=== PATIENT | female | born 1995 | race Caucasian/White ===

== ENCOUNTER 2017-05-22 08:15 | Inpatient (IN) | payer BC, OTHER ==
[~2017-05-22] VITALS: Ht 167.6 cm; Wt 109.0 kg
--- OUTSIDE RECORDS SUMMARY | ~2017-05-22 | XMS ---
Demographics + + + | Address | [address] | | | [place] [address] | + + + | Preferred Language | Unknown | + + + | Marital Status | Unknown | + + + | Episcopal Affiliation | Unknown | + + + | Race | Unknown | + + + | Ethnic Group | Unknown | + + + Author + + + | Author | [facility] | + + + | Organization | [facility] | + + + | Address | [address] | | | [place] [address] | + + + | Phone | | + + + Care Team Providers + + + + | Care Hot End Operator Name | Role | Phone | + + + + Unavailable | Unavailable | + + + + PROBLEMS +---------+ + + +--------+ + + | Type | Condition | ICD9-CM | [id number] | Onset | Condition | SNOMED | | | | Code | Code | Dates | Status | Code | +---------+ + + +--------+ + + | Problem | Encounter | | Z34.00 | | Active | [id number] | | | for | | | | | | | | supervisio | | | | | | | | n of | | | | | | | | normal | | | | | | | | first | | | | | | | | , | | | | | | | | | | | | | | | | unspecifie | | | | | | | | d | | | | | | | | trimester | | | | | | +---------+ + + +--------+ + + ALLERGIES Unknown Allergies SOCIAL HISTORY No smoking Hx information available PLAN OF CARE VITAL SIGNS MEDICATIONS Unknown Medications RESULTS No Results PROCEDURES No Known procedures IMMUNIZATIONS No Known Immunizations"
--- NOTE | 2017-05-26 13:32 | NUR ---
05/26/17 1332 Lisa Yost 1324 PATIENT ARRIVES TO [facility] ROOM FROM OR, AWAKE, ALERT AND ORIENTED X3. RESP EVEN AND UNLABORED. SKIN PALE, WARM, DRY. DENIES COMPLAINTS OF NAUSEA OR PAIN.
--- NOTE | 2017-05-27 10:23 | OR ---
[facility] [address] [place], [place] [address] Signed DATE OF PROCEDURE: 05/26/17 PREOPERATIVE DIAGNOSES: Term , macrosomia. POSTOPERATIVE DIAGNOSES: Term , macrosomia. PROCEDURE PERFORMED Primary low transverse segment section. Delivery, live male . SURGEON: Dr. Arguelles. SAND WHEELER: Dr. Davis. ANESTHESIA: Spinal. ESTIMATED BLOOD LOSS: 500 mL. COMPLICATIONS: None. DRAINS: Cross to bladder. FINDINGS Live male . Apgars 9 and 9, weight 9 pounds 13 ounces. Normal uterus, normal tubes and ovaries bilaterally. DESCRIPTION OF PROCEDURE The patient was brought in the operating room, placed in the supine position. After adequate spinal anesthesia was obtained, she was prepped and draped in usual sterile fashion. Cross catheter was placed in the bladder. A Pfannenstiel skin incision was made with a scalpel, extended through subcutaneous tissue with a Bovie. Fascia was nicked with scalpel and extended in transverse fashion using curved scissors. The underlying abdominal musculature was bluntly and sharply from the fascia above and below the incision. The abdominal musculature was bluntly and sharply on the midline. The peritoneum was grasped with hemostats, elevated and nicked with Metzenbaum scissors and extended in a vertical fashion using Metzenbaum scissors. The Rashel self-retaining retractor was inserted into the incision and tightened in place. The lower uterine segment of the uterus was identified and the bladder noted to be well below the area, so a scalpel was used to make a small laurence in the lower uterine segment. Finger dissection was then used in a transverse fashion to open the incision; clear fluid came from the incision. The infant was noted to be in a vertex BLANQUITA presentation. The infant's head was easily delivered from the incision. The cord was noted to be around the neck and shoulder in a [id number]-zb-[id number] pattern. This was removed and the rest Electronically Signed By: MIRI ARGUELLES MD 05/27/17 1023 PATIENT NAME: ISAIAH HINDS OPERATIVE REPORT DATE OF : 89 PHYSICIAN: MIRI ARGUELLES MD REPORT #: [id number] REPORT IS CONFIDENTIAL AND NOT TO BE RELEASED WITHOUT AUTHORIZATION [facility] [address] [place], [place] [address] Signed of the easily delivered from the incision. The mouth and nose were suctioned with bulb syringe while the cord was doubly clamped and cut. The was passed off table in good condition to awaiting nurse. The placenta was then manually removed and uterine cavity explored with a lap pad to remove any retained membranes. An angle stitch of 0 Monocryl was placed in one end of incision and running locking stitch of 0 Monocryl starting at the other end, used to close the incision. A second running stitch of 0 Monocryl was used to imbricate the first layer. A good hemostasis noted except for 1 small area just to the right of midline, which was controlled with a hholhk-du-omfgd stitch of 0 Monocryl. When good hemostasis was obtained, the entire pelvis was irrigated, suctioned, examined and any superficial bleeding spots cauterized with the Bovie. The Rashel retractor was then removed and the lower uterine segment reexamined, noted to have good hemostasis. Sheet of ACell was placed over the lower uterine segment to help with healing. The anterior peritoneum was then closed using a running stitch of 2-0 Vicryl suture. The abdominal musculature was reapproximated using interrupted stitches of 0 Vicryl suture. The abdominal wall incision was irrigated, suctioned, examined and any bleeding spots cauterized with the Bovie. Powdered ACell sprinkled on the abdominal musculature to help with healing and then the fascia closed using 2 running stitches of 0 Vicryl suture meeting in the midline. Subcutaneous tissue was irrigated, suctioned, examined and any bleeding spots cauterized with the Bovie. Powdered ACell was sprinkled on subcutaneous tissue to help with healing and then this was closed using interrupted stitches of 3-0 Vicryl suture. The skin was reapproximated using skin clips. The patient tolerated the procedure well; went to recovery room in good condition. All sponge, needle, instrument count correct at th end of the procedure. MD NORIS Tompkins/Dipeshl /[id number] Electronically Signed By: MIRI ARGUELLES MD 05/27/17 1023 PATIENT NAME: ISAIAH HINDS OPERATIVE REPORT DATE OF : 95 PHYSICIAN: MIRI ARGUELLES MD REPORT #: [id number] REPORT IS CONFIDENTIAL AND NOT TO BE RELEASED WITHOUT AUTHORIZATION
--- NOTE | 2017-05-27 10:24 | PR ---
[facility] [address] [place] [address] Signed PP Progress Notes Datetime Report Generated by CPN: 05/27/2017 10:24 SUBJECTIVE: [id number] Pain: Within normal limits Nausea/Vomiting: Denies Vital Signs: [id number] Vital Signs: Reviewed; Within Normal Limits Notable Details: PP Hgb/Hct = 8.9/26.3 EXAM: [id number] Abdomen/Uterus: Normal Lochia: Normal Extremities: Normal Incision: Normal IMPRESSION/PLAN/PROCEDURES: [id number] Impression: Normal progression Plan: Continue present management Procedures: None Progress Notes: Doing well, feels better now that Tay Jones is out. Signing Physician: Adrian Arguelles MD CC: *Electronically Signed* 05/27/17 [facility] ADRIAN ARGUELLES MD PATIENT NAME: ISAIAH HINDS PROGRESS NOTE DATE OF : 95 PHYSICIAN: ADRIAN ARGUELLES MD RPT #: [id number] REPORT IS CONFIDENTIAL AND NOT TO BE RELEASED WITHOUT AUTHORIZATION
--- NOTE | 2017-05-28 08:50 | PR ---
[facility] [address] [facility] [place], [place] [address] Signed PP Progress Notes Datetime Report Generated by CPN: 05/28/2017 08:50 SUBJECTIVE: [id number] Pain: Within normal limits Nausea/Vomiting: Denies Vital Signs: [id number] Vital Signs: Reviewed; Within Normal Limits Notable Details: Plts = 98 (increasing) Hgb/Hct = 8.6/25.5 EXAM: [id number] Abdomen/Uterus: Normal Lochia: Normal Extremities: Normal Incision: Normal IMPRESSION/PLAN/PROCEDURES: [id number] Impression: Normal progression Other Impression: PP Anemia. Thrombocytopenia Plan: Continue present management Procedures: None Progress Notes: Doing well, improving, but still somewhat sore. Plan home tomorrow. Signing Physician: Miri Benavidez MD CC: *Electronically Signed* 05/28/17 0850 MIRI BENAVIDEZ MD PATIENT NAME: ISAIAH HNIDS PROGRESS NOTE DATE OF : 95 PHYSICIAN: MIRI BENAVIDEZ MD RPT #: [id number] REPORT IS CONFIDENTIAL AND NOT TO BE RELEASED WITHOUT AUTHORIZATION
== END 2017-05-29 11:20 | disposition home or self-care (01) | DRG 766 ==
LOC: FBC 05-26 09:59
PROVIDERS: ADMIT General Practice
PROC: 10D00Z1 Extraction of Products of Conception, Low, Open Approach (ICD-10-PCS; principal; 2017-05-26 12:00)
DX: O36.63X0 Maternal care for excessive fetal growth, third trimester, not applicable or unspecified (principal); Z3A.39 39 weeks gestation of pregnancy; Z37.0 Single live birth; O90.81 Anemia of the puerperium; O99.824 Streptococcus B carrier state complicating childbirth; O69.81X0 Labor and delivery complicated by cord around neck, without compression, not applicable or unspecified
CPT/HCPCS: 01961; 36415; 85027; C1763; J0690; J2274; J2370; J2405; J2550; J2590; J2765; J7120

== ENCOUNTER 2018-07-16 17:35 | Emergency (ER) | payer BC ==
[~2018-07-16] VITALS: Ht 167.6 cm; Wt 108.4 kg
--- OUTSIDE RECORDS SUMMARY | ~2018-07-16 | XMS ---
Demographics + + + | Address | [address] | | | [place] [address] | + + + | Preferred Language | Unknown | + + + | Marital Status | Unknown | + + + | Catholic Affiliation | Unknown | + + + | Race | Unknown | + + + | Ethnic Group | Unknown | + + + Author + + + | Author | [facility] | + + + | Organization | [facility] | + + + | Address | [address] | | | [place] [address] | + + + | Phone | | + + + Care Team Providers + + + + | Care Geothermal Production Manager Name | Role | Phone | + + + + Unavailable | Unavailable | + + + + PROBLEMS Unknown Problems ALLERGIES No Known Allergies SOCIAL HISTORY Never Assessed PLAN OF CARE + +---------+ | Activity | Details | + +---------+ +---+ | | +---+ + + + | Follow Up | 4 Weeks Reason:null | + + + VITAL SIGNS + + + + | Height | 5 ft 6 in in | 2017-06-08 | + + + + | Weight | 206 lbs | 2017-06-08 | + + + + | BMI | 33.25 kg/m2 | 2017-06-08 | + + + + | Temperature | 98.4 degrees Fahrenheit | 2017-06-08 | + + + + | Heart Rate | 116/70 /min | 2017-06-08 | + + + + MEDICATIONS + + + + +--------+ + +--------+ | Medicati | Instruct | Dosage | Frequenc | Start | End Date | Duration | Status | | on | ions | | y | Date | | | | + + + + +--------+ + +--------+ | Ibuprofe | Orally | 1 tablet | | | | | Active | | n 800 MG | every 8 | | | | | | | | | hours as | | | | | | | | | needed | | | | | | | | | for pain | | | | | | | + + + + +--------+ + +--------+ RESULTS No Results PROCEDURES + + +--------+ + | Procedure | Date Ordered | Result | Body Site | + + +--------+ + | visit | Jun 08, 2017 | | | + + +--------+ + IMMUNIZATIONS No Known Immunizations MEDICAL (GENERAL) HISTORY + + +------+ | Type | Description | Date | + + +------+ | Medical History | No previous medical | | | | problems | | + + +------+ | Surgical History | gallbladder | 2010 | + + +------+ | Surgical History | tonsilectomy | 1998 | + + +------+"
--- OUTSIDE RECORDS SUMMARY | ~2018-07-16 | XMS ---
Demographics + + + | Address | [address] | | | [place] [address] | + + + | Preferred Language | Unknown | + + + | Marital Status | Unknown | + + + | Buddhist Affiliation | Unknown | + + + | Race | Unknown | + + + | Ethnic Group | Unknown | + + + Author + + + | Author | [facility] | + + + | Organization | [facility] | + + + | Address | [address] | | | [place] [address] | + + + | Phone | | + + + Care Team Providers + + + + | Care Antisqueak Chalker Name | Role | Phone | + + + + Unavailable | Unavailable | + + + + PROBLEMS Unknown Problems ALLERGIES No Information SOCIAL HISTORY Never Assessed PLAN OF CARE + +---------+ | Activity | Details | + +---------+ +---+ | | +---+ + + + | Follow Up | 1 Week Reason:null | + + + VITAL SIGNS MEDICATIONS Unknown Medications RESULTS No Results PROCEDURES + + +--------+ + | Procedure | Date Ordered | Result | Body Site | + + +--------+ + | visit | Jun 02, 2017 | | | + + +--------+ + IMMUNIZATIONS No Known Immunizations MEDICAL (GENERAL) HISTORY + + +------+ | Type | Description | Date | + + +------+ | Medical History | No previous medical | | | | problems | | + + +------+ | Surgical History | gallbladder | 2010 | + + +------+ | Surgical History | tonsilectomy | 1997 | + + +------+"
--- OUTSIDE RECORDS SUMMARY | ~2018-07-16 | XMS ---
Demographics + + + | Address | [address] | | | [place] [address] | + + + | Preferred Language | Unknown | + + + | Marital Status | Unknown | + + + | Orthodox Affiliation | Unknown | + + + | Race | Unknown | + + + | Ethnic Group | Unknown | + + + Author + + + | Author | [facility] | + + + | Organization | [facility] | + + + | Address | [address] | | | [place] [address] | + + + | Phone | | + + + Care Team Providers + + + + | Care Maintenance Clerk Name | Role | Phone | + + + + Unavailable | Unavailable | + + + + PROBLEMS +---------+ + + +--------+ + + | Type | Condition | ICD9-CM | [id number] | Onset | Condition | SNOMED | | | | Code | Code | Dates | Status | Code | +---------+ + + +--------+ + + | Problem | Encounter | | Z34.00 | | Active | [id number] | | | for | | | [...]
--- OUTSIDE RECORDS SUMMARY | ~2018-07-16 | XMS ---
Demographics + + + | Address | [address] | | | [place] [address] | + + + | Preferred Language | Unknown | + + + | Marital Status | Unknown | + + + | Bahai Affiliation | Unknown | + + + | Race | Unknown | + + + | Ethnic Group | Unknown | + + + Author + + + | Author | [facility] | + + + | Organization | [facility] | + + + | Address | [address] | | | [place] [address] | + + + | Phone | | + + + Care Team Providers + + + + | Care Forensic Dna Analyst Name | Role | Phone | + + + + Unavailable | Unavailable | + + + + PROBLEMS Unknown Problems ALLERGIES No Information SOCIAL HISTORY Never Assessed PLAN OF CARE + +---------+ | Activity | Details | + +---------+ +---+ | | +---+ + + + | Follow Up | prn Reason:null | + + + VITAL SIGNS MEDICATIONS Unknown Medications RESULTS No Results PROCEDURES + + +--------+ + | Procedure | Date Ordered | Result | Body Site | + + +--------+ + | DELIVERY - | May 26, 2017 | | | | includes | | | | | antepartumand | | | | | | | | | + + +--------+ + [...]
[2018-07-16] MEDS ORDERED: IBU600 MG PO (20:32)
[2018-07-16] MEDS ORDERED: NORCO 5-325 TA1 EACH PO (20:32)
[2018-07-16] MEDS ORDERED: ZOFRAN ODT4 MG (20:32)
== END 2018-07-16 20:51 | disposition home or self-care (01) ==
LOC: ED 17:35
DX: N20.0 Calculus of kidney (principal)
CPT/HCPCS: 74176; 80053; 81001; 84703; 85025; 96374; 96375; 99284; J1885; J2405

== ENCOUNTER 2021-04-02 10:13 | Emergency (ER) | payer OTHER, BC ==
[~2021-04-02] VITALS: Ht 167.6 cm; Wt 65.8 kg
[~2021-04-02 10:13] MED LIST: IBU600 MG PO; NORCO 5-325 TA1 EACH PO; SERTRALINE HCL100 MG PO; URIBEL CAPSULE1 EACH PO; ZOFRAN ODT4 MG
[2021-04-02] MEDS ORDERED: FLOMAX0.4 MG PO (13:40)
[2021-04-02] MEDS ORDERED: ONDANSETRON ODT8 MG PO (13:40)
[2021-04-02] MEDS ORDERED: HYDROCODON-ACE1 EA11 PO (13:40)
== END 2021-04-02 14:00 | disposition home or self-care (01) ==
LOC: ED 10:13
DX: N20.1 Calculus of ureter (principal); Z88.5 Allergy status to narcotic agent; Z88.8 Allergy status to other drugs, medicaments and biological substances; Z79.899 Other long term (current) drug therapy
CPT/HCPCS: 80053; 81001; 84703; 85025; 87088; 96374; 96375; 99284-25; J1885; J2405

== ENCOUNTER 2021-04-02 21:51 | Emergency (ER) | payer BC, OTHER ==
[~2021-04-02] VITALS: Ht 167.6 cm; Wt 65.8 kg
[~2021-04-02 21:51] MED LIST changes: +FLOMAX0.4 MG PO; +HYDROCODON-ACE1 EA11 PO; +ONDANSETRON ODT8 MG PO
--- OUTSIDE RECORDS SUMMARY | 2021-04-02 21:54 | XMS ---
PreManage Notification: ISAIAH HINDS Security Alcohol And Drug Counselor Events No recent Security Events currently on file CRITERIA MET - [facility] - 2 Visits in 30 Days CARE PROVIDERS There are no care providers on record at this time. [place] has no Care Guidelines for this patient. Jm VISIT COUNT (12 MO.) [address] [facility] [facility]. TOTAL 2 NOTE: Visits indicate total known visits. ED/C VISIT TRACKING (12 MO.) 04/02/2021 21:[address] [facility] [place] TYPE: Emergency COMPLAINT: - ALTERED LOC 04/02/2021 10:14 [facility] [place] TYPE: Emergency COMPLAINT: - R SIDE FLANK PAIN, NAUSEA INPATIENT VISIT TRACKING (12 MO.) No inpatient visits to display in this time frame [email or web address]
== END 2021-04-03 01:02 | disposition home or self-care (01) ==
LOC: ED 21:51
DX: R40.0 Somnolence (principal); Z88.5 Allergy status to narcotic agent; Z79.899 Other long term (current) drug therapy
CPT/HCPCS: 36415; 80053; 80176; 81001; 85025; 99285